=== PATIENT | male | born 2005 | race African-American/Black ===

== ENCOUNTER 2025-01-05 14:23 | Emergency (ER) | payer OTHER, SELFPAY | END 2025-01-05 15:20 | disposition home or self-care (01) | LOC: BURERS 14:23 | DX: U07.1 COVID-19 (principal) | CPT/HCPCS: 99283 ==

== ENCOUNTER 2025-02-15 13:21 | Emergency (ER) | payer OTHER ==
[2025-02-15 13:41] LABS: Glucose, Urine (Dipstick) Negative (Negative); Leukocyte Negative (Negative); Protein, Urine (Dipstick) Negative (Neg-Trace); Specific Gravity, Urine 1.015 (1.005-1.030)
[2025-02-15 13:48] LABS: Bacteria/HPF Rare-Few HPF (None Seen); CAUTI Indications for Culture Dysuria,urgency,freq; RBC/HPF 0-3 HPF (0-3); WBC/HPF 0-3 HPF (0-3)
[2025-02-15 13:50] LABS: Urine Culture Reflex No No
[2025-02-15] MEDS ORDERED: Azithromycin 250 MG TAB ONE (13:51)
[2025-02-15] MEDS ORDERED: cefTRIAXone (ROCEPHIN) 250 MG VIAL ONE (13:51)
[2025-02-16 01:21] LABS: Chlam.trachomatis by PCR,Urine DETECTED (NotDetected); GC N.gonorrhoeae PCR,UrineVOID Not Detected (NotDetected)
== END 2025-02-15 14:10 | disposition home or self-care (01) ==
LOC: BURERS 13:21
DX: R35.0 Frequency of micturition (principal); F17.200 Nicotine dependence, unspecified, uncomplicated
CPT/HCPCS: 81001; 87491; 87591; 96372; 99283; J0696